=== PATIENT | male | born 1955 | race Hispanic/Latino ===

== ENCOUNTER 2020-02-04 14:50 | Emergency (ER) | payer OTHER ==
[2020-02-04 15:38] LABS: BASOPHILS % (AUTO) 0.2 % (0.0-5.0); EOSINOPHILS % (AUTO) 0.2 % (0.0-8.0); HEMATOCRIT 41.4 % (42-54); LYMPHOCYTES % (AUTO) 34.5 % (21.0-51.0); MEAN CORPUSCULAR HEMOGLOBIN 32.5 pg (27.0-33.0); MEAN CORPUSCULAR VOLUME 92.8 fL (79-99); MONOCYTES % (AUTO) 11.4 % (3.0-13.0); NEUTROPHILS % (AUTO) 53.5 % (40.0-77.0); PLATELET COUNT (AUTO) 234 K/uL (130-400); RED BLOOD CELL COUNT(AUTO) 4.46 MIL/uL (4.50-6.20); RED CELL DISTRIBUTION WIDTH 13.1 % (11.0-15.5); WHITE BLOOD COUNT (AUTO) 5.3 K/uL (4.8-10.8)
[2020-02-04] MEDS ORDERED: IOHEXOL-350 75 ML VIAL IV ONE (15:54)
[2020-02-04 15:58] LABS: CREATININE 0.8 mg/dL (0.5-1.5); POTASSIUM 3.8 mmol/L (3.5-5.1)
[2020-02-04 16:02] LABS: ALBUMIN 3.6 g/dL (3.5-5.0); BILIRUBIN,TOTAL 0.2 mg/dL (0.2-1.0); TOTAL PROTEIN, SERUM 7.9 g/dL (6.0-8.3)
[2020-02-04 16:11] LABS: APPEARANCE,URINE Clear (CLEAR); BILIRUBIN,URINE Negative (NEGATIVE); COLOR,URINE Yellow (YELLOW); GLUCOSE, URINE (UA) Negative (NEGATIVE); KETONES,URINE Negative (NEGATIVE); LEUKOCYTE ESTERASE ,URINE Negative (NEGATIVE); NITRATE,URINE Negative (NEGATIVE); OCCULT BLOOD,URINE Negative (NEGATIVE); PROTEIN,URINE Negative (NEGATIVE); UROBILINOGEN,URINE 0.2 mg/dL (0.2-1.0)
== END 2020-02-04 17:30 | disposition home or self-care (01) ==
LOC: EDH 14:50
DX: K57.32 Diverticulitis of large intestine without perforation or abscess without bleeding (principal); K40.90 Unilateral inguinal hernia, without obstruction or gangrene, not specified as recurrent; I10 Essential (primary) hypertension; Z87.891 Personal history of nicotine dependence
CPT/HCPCS: 36415; 74177; 80053; 81003; 83690; 85025; 99285; Q9967

== ENCOUNTER 2020-04-17 06:39 | Day surgery (SDC) | payer OTHER ==
[2020-04-13 12:20] LABS: BASOPHILS % (AUTO) 0.4 % (0.0-5.0); EOSINOPHILS % (AUTO) 1.2 % (0.0-8.0); HEMATOCRIT 44.1 % (42-54); LYMPHOCYTES % (AUTO) 39.8 % (21.0-51.0); MEAN CORPUSCULAR HEMOGLOBIN 32.7 pg (27.0-33.0); MEAN CORPUSCULAR VOLUME 96.1 fL (79-99); MONOCYTES % (AUTO) 6.9 % (3.0-13.0); NEUTROPHILS % (AUTO) 51.3 % (40.0-77.0); PLATELET COUNT (AUTO) 300 K/uL (130-400); RED BLOOD CELL COUNT(AUTO) 4.59 MIL/uL (4.50-6.20); RED CELL DISTRIBUTION WIDTH 14.3 % (11.0-15.5); WHITE BLOOD COUNT (AUTO) 7.5 K/uL (4.8-10.8)
[2020-04-13 12:35] LABS: CREATININE 0.7 mg/dL (0.5-1.5); POTASSIUM 4.4 mmol/L (3.5-5.1)
--- NOTE | 2020-04-14 16:57 | NUR ---
COVID positive Spoke to pt; states he first tested positive on 03/17/2020 at [facility] [place]; states he is asymptomatic and feeling well
[2020-04-16 10:31] VITALS: BP 142/81
--- NOTE | 2020-04-16 10:36 | NUR ---
PT DENIES ANY SOB,FEVER,COUGH, FEELS WELL. HE IS AWARE OF POSITIVE COVID RESULTS
--- NOTE | 2020-04-16 11:06 | NUR ---
POSTIVE COVID RESULTS CALLED TO SANJUANITA Diaz/ DR ZAVALETA.
[~2020-04-17] VITALS: Ht 170.2 cm; Wt 75.6 kg
[2020-04-17] VITALS (17 sets, daily range): BP systolic 114–161; BP diastolic 61–94
[~2020-04-17 06:39] MED LIST: CEFAZOLIN SODIUM 1 GM VIAL IVP SCH; CEFAZOLIN SODIUM 1 GM VIAL ONE; LACTATED RINGERS 1000ML 1,000 ML IV ONE; LISI-617 PO; OMEP20CA12 PO; SODIUM CHLORIDE 0.9% 500ML 500 ML IV SCH
[2020-04-17] MEDS ORDERED: LACTATED RINGERS 1000ML 1,000 ML IV ONE (06:58)
[2020-04-17] MEDS ORDERED: LIDOCAINE PF 2% 5ML ABBOJECT ONE (07:18)
[2020-04-17] MEDS ORDERED: ONDANSETRON HCL 4 MG/2 ML VIAL ONE (07:18)
[2020-04-17] MEDS ORDERED: SUCCINYLCHOLINE CHLORIDE 20 MG/ML 10 ML VIAL ONE (07:18)
[2020-04-17] MEDS ORDERED: PROPOFOL 10 MG/ML 20ML VIAL IV ONE ×2 (07:19→08:51)
[2020-04-17] MEDS ORDERED: DEXAMETHASONE SOD PHOSPHATE 10MG/ML 1ML VIAL ONE (07:19)
[2020-04-17] MEDS ORDERED: NEOSTIGMINE 5MG/5ML SYR IV ONE (07:19)
[2020-04-17] MEDS ORDERED: ROCURONIUM 10MG/1ML SYR 10 MG/ML ML ONE ×2 (07:19→08:50)
[2020-04-17] MEDS ORDERED: MIDAZOLAM HCL 1 MG/ML 2ML VIAL ONE (07:19)
[2020-04-17] MEDS ORDERED: GLYCOPYRROLATE 1 MG/5 ML SYRINGE ONE (07:19)
[2020-04-17] MEDS ORDERED: FENTANYL CITRATE PF 50 MCG/1 ML 2ML VIAL ONE ×2 (07:20→08:48)
[2020-04-17] MEDS ORDERED: EPHEDRINE SULFATE 50 MG/ML AMPULE ONE (07:23)
[2020-04-17] MEDS ORDERED: ROPIVACAINE 0.5% 5MG/ML 30ML IJ ONE (07:27)
[2020-04-17] MEDS ORDERED: VITAMIN B12 PO (07:31)
[2020-04-17] MEDS ORDERED: ASCO100031 PO (07:31)
[2020-04-17] MEDS ORDERED: TUMERIC PO (07:31)
[2020-04-17] MEDS ORDERED: BUPIVACAINE/PF 0.5% 30ML VIAL ONE (07:41)
[2020-04-17] MEDS ORDERED: ESMOLOL HCL 10 MG/ML 10 ML VIAL ONE (08:42)
[2020-04-17] MEDS ORDERED: FENTANYL CITRATE PF 50 MCG/1 ML 5ML AMP IV ONE (09:01)
[2020-04-17] MEDS ORDERED: SUGAMMADEX SODIUM 200 MG/2 ML VIAL IV ONE (10:26)
--- NOTE | 2020-04-17 11:55 | NUR ---
PATIENT AAOX3, RESPIRATIONS UNLABORED, VITAL SIGNS STABLE. DRESSING TO ABDOMEN (2 BANDAIDS) ARE DRY/INTACT. PATIENT DENIES ANY PAIN AT THIS TIME.
--- NOTE | 2020-04-17 12:10 | NUR ---
DISCHARGE INSTRUCTIONS PROVIDED TO PATIENT'S VIA TELEPHONE. FOLLOW UP APPOINTMENT PROVIDED AND HANDOUTS PROVIDED. PATIENT INSTRUCTED ON INCISION CARE. ALL QUESTIONS/CONCERNS ADDRESSED.
--- NOTE | 2020-04-17 12:20 | NUR ---
PATIENT DISCHARGED FROM FACILITY VIA WHEELCHAIR BY NURSE. PATIENT ASSISTED INTO PRIVATE VEHICLE DRIVEN BY FAMILY.
== END 2020-04-17 12:20 | disposition home or self-care (01) ==
LOC: DAH 06:39 → EDSTATUS 09:00 → DAH 12:20
PROVIDERS: ATTEND Surgery
DX: K40.90 Unilateral inguinal hernia, without obstruction or gangrene, not specified as recurrent (principal); Z20.828 Contact with and (suspected) exposure to other viral communicable diseases; I10 Essential (primary) hypertension; K21.9 Gastro-esophageal reflux disease without esophagitis; Z98.890 Other specified postprocedural states; Z79.899 Other long term (current) drug therapy
CPT/HCPCS: 36415; 49650; 80048; 85025; 93005; A4215; A4221; A4222; A4223; A4649; A4663; A4930; A5120; C1769; C1781; G0168; J0330; J0690; J1100; J2001; J2250; J2405; J2704 ×2; J2710; J2795; J3010 ×3; J3490 ×4; J7030; J7120 ×3; U0003; J7040

== ENCOUNTER → 2023-06-20 | Outpatient (CLI) | payer OTHER ==
[~2023-06-20] MED LIST changes: +ASCO100031 PO; -CEFAZOLIN SODIUM 1 GM VIAL IVP SCH; -CEFAZOLIN SODIUM 1 GM VIAL ONE; -LACTATED RINGERS 1000ML 1,000 ML IV ONE; -LISI-617 PO; +LISI5TAB21 PO; -SODIUM CHLORIDE 0.9% 500ML 500 ML IV SCH; +TUMERIC PO; +VITAMIN B12 PO
[2023-06-20 14:38] LABS: CREATININE 0.8 mg/dL (0.5-1.5)
== END | disposition home or self-care (01) ==
LOC: LAB 12:54
PROVIDERS: ATTEND Otolaryngology Plastic Surgery within the Head & Neck
DX: H90.3 Sensorineural hearing loss, bilateral (principal)
CPT/HCPCS: 36415; 82565; 84520

== ENCOUNTER → 2023-09-15 | Outpatient (CLI) | payer OTHER | END | disposition home or self-care (01) | LOC: RAH 09:45 | PROVIDERS: ATTEND Internal Medicine Gastroenterology | DX: Z12.11 Encounter for screening for malignant neoplasm of colon (principal); K63.9 Disease of intestine, unspecified; K57.30 Diverticulosis of large intestine without perforation or abscess without bleeding | CPT/HCPCS: 74270 ==